=== PATIENT | male | born 1935 | race Caucasian/White ===

== ENCOUNTER 2024-10-16 08:29 | Day surgery (SDC) | payer MEDICARE, OTHER, SELFPAY ==
[2024-10-16] VITALS (17 sets, daily range): BP systolic 130–160; BP diastolic 56–99; BMI 25.9
--- NOTE | 2024-10-16 12:50 | HP.FOC2 ---
Focused History & Physical
Chief Complaint
HPI:
Chief Complaint: Left spigelian hernia
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 He has been experiencing intermittent symptoms with
increasing frequency including discomfort and occasional pain with difficulty reducing the hernia. He will have to lie down to relax his abdomen which enables the hernia to reduce. It tends to be exacerbated when he was straining during a bowel
movement if he is not providing adequate support in the area.
CT abdomen/pelvis imaging from 2021 identified a left-sided spigelian hernia predominantly fat-containing with the colon slightly entering the region of the fascial defect. Hernia defect measuring approximately 3 cm x 2 cm.
Relevant Past Medical History: Other (Anxiety/depression, hypercholesterolemia, urinary frequency, Parkinson's, PVCs)
Relevant Social History: Negative
Relevant Family History: Negative
Relevant Past Surgical History: Positive for (Bilateral hip replacement, bilateral knee replacement, cholecystectomy)
Review of Systems
Review of Pertinent Systems: All Systems Negative
Medication
See Medication form for detailed medications: Yes
Medication List (including Herbals & OTC):
escitalopram oxalate 5 mg tablet (Lexapro) 5 mg PO HS Depression 07/04/22
simvastatin 20 mg tablet (Zocor) 20 mg PO HS High cholesterol 07/04/22
tamsulosin 0.4 mg capsule (Flomax) 0.4 mg PO HS Urinary issue 07/04/22
famotidine 40 mg tablet 40 mg PO HS 10/10/24
finasteride 5 mg tablet 5 mg PO HS 10/10/24
mecobalamin (vitamin B12) 1,000 mcg chewable tablet 500 - 1,000 mcg PO DAILY 10/10/24
multivitamin 1 tab PO DAILY 10/10/24
polyethylene glycol 3350 17 gram oral powder packet (Miralax) 17 g PO DAILY 10/10/24
Medications Reviewed: Yes
Allergies and Reactions
Patient has Allergies: Yes
Noted Allergies and Reactions:
Allergy/AdvReac Type Severity Reaction Status Date / Time
piperacillin [From Zosyn] Allergy Mild SEVERE Verified 10/16/24 12:39
ERYTHEMA/SWELLING/RASH
tazobactam [From Zosyn] Allergy Mild SEVERE Verified 10/16/24 12:39
ERYTHEMA/SWELLING/RASH
morphine Allergy Unknown Verified 10/16/24 12:39
Pertinent Physical Exam
All Other Systems: Negative
Head/Neck: Normal
Lungs: Normal
Heart: Normal
Abdomen: Other (Reducible left lower quadrant spigelian hernia)
Extremities: Normal
Neurological: Normal
Diagnosis / Assessment
89-year-old male presenting for scheduled operative correction left-sided spigelian hernia.
Plan / Procedure
Open repair left spigelian hernia with mesh.
Anesthesia/Sedation to be done by Anesthesia Provider: Yes
--- NOTE | 2024-10-16 12:53 | W.SUR.PREOP ---
Pre-Operative Surgical Note
-
I have examined this patient prior to the performance of the scheduled procedure.
The patient's condition is unchanged from the time of the current History and
Physical and the patient is able to undergo the scheduled procedure.
[2024-10-16] MEDS: TYLENOL 1000 MG PO (13:10)
[2024-10-16] MEDS: NORMOSOL-R/PLASMALYTE-A 1000 IV (13:10)
--- NOTE | 2024-10-16 15:43 | W.IMMPOSTOP ---
Addendum entered and electronically signed by Ronald Wheeler MD 10/16/24 16:00:
#[id number]
Original Note:
Surgical Immed Post Op Note
-
Primary Surgeon: Ronald Wheeler MD
Assisting Surgeon: Gianna Pacheco PA-c
Pre-op Diagnosis: Left spigelian hernia
Post-op Diagnosis: Left spigelian hernia, 2 cm
Procedure Performed: Open repair left spigelian hernia with mesh (Bard soft 5 cm x 10 cm)
Anesthesia Type: LMA +1% lidocaine and 0.25% Marcaine with epi
Specimen / Cultures: None
Estimated Blood Loss: 6 mL
Complications: None immediate
Operative Findings: Left spigelian hernia. Sac ligated at neck with 2-0 Vicryl stitch. Defect approximately 2 cm closed with 2-0 Vicryl. Bard soft mesh 5 cm x 10 cm placed as a inlay between internal oblique/transversalis fascial defect and
external oblique. External oblique aponeurosis closed with 0 Vicryl.
The assistance of Gianna Pacheco PA-c was required due to the complexity of the procedure. During the procedure Gianna Pacheco PA-c assisted with retraction for exposure, and closure of the incision site.
[2024-10-16] MEDS: NSS 1000 IV (19:46)
[2024-10-16] MEDS: PROSCAR 5 MG PO (21:28)
[2024-10-16] MEDS: FLOMAX 0.4 MG PO (21:28)
[2024-10-16] MEDS: LEXAPRO 5 MG PO (21:28)
[2024-10-16] MEDS: LIPITOR 10 MG PO (21:28)
--- NOTE | 2024-10-16 23:56 | PTCARENOTE ---
Received patient from PACU. stable vitals. forgetful. No pain. Left lower abdominal site CDI. Bed alarm on place for safety. POC reviewed with patient and family.
[2024-10-17] MEDS: TYLENOL 650 MG PO (02:57)
[2024-10-17 03:00] VITALS: BP 151/77
[2024-10-17] MEDS: NSS IV (03:42)
--- NOTE | 2024-10-17 07:06 | W.PN.GS2 ---
Addendum entered and electronically signed by Ronald Wheeler MD 10/17/24 08:43:
Telephone follow-up updated patient's . Advised her that from my standpoint he would be medically/surgically cleared for discharge. She would like to further discuss with case management regarding what possible home resources may be available.
Dispo pending the above. She will be in to see her shortly.
Original Note:
Today's Communication / Plan
-
`
Assessment / Plan
-
Assessment: 89 y/o male POD#1 s/p open repair left spigelian hernia with mesh
AFVSS
overall doing well post op
Plan: tylenol for pain
ambulate as tolerated
home meds
from a surgical standpoint okay for dc home - possible home PT/VN
dispo planning
Subjective Data
-
Date of Service: October 17, 2024
pt seen and examined
nursing at bedside
voided overnight and trying to go again now
minimal post op pain only with movement
no nausea
Objective Data
-
Intake and Output
10/16/24 10/17/24 10/18/24
06:59 06:59 06:59
Intake Total 2335 / 2335
Output Total 725 / 725
Balance 1610 / 1610
Intake:
Oral fluids 960 / 960
IV fluids (Total) 1375 / 1375
normosol 175 / 175
Output:
Urine, Voided 725 / 725
Other:
How many times incontinent 1
SMALL amount urine
Vital Signs
Temp Pulse Resp BP Pulse Ox
97.5 F 66 18 151/77 93
10/17/24 03:00 10/17/24 03:00 10/17/24 03:00 10/17/24 03:00 10/17/24 03:00
Physical Exam
-
NAD AAO
ABD: soft, ND, mild TTP localized to LLQ with clean gauze dressing in place
[2024-10-17 07:19] VITALS: BP 147/82
[2024-10-17] MEDS: THERAGRAN 1 TABLET PO (08:52)
[2024-10-17] MEDS: MIRALAX 17 GRAMS PO (08:52)
--- NOTE | 2024-10-17 11:06 | CM ---
Reviewed the chart notes and spoke with the patient and his spouse at the bedside. The patient resides with his spouse in a two story home with one step to enter. First floor bedroom with full bath. The patient has had [facility] in the past, but
no SNF. Patient has a rolling walker and shower chair. Patient prior to hospitalization was doing outpatient therapy for Parkinsons at [facility]. Discussed VN agencies, patient selected [facility]N. Referral sent via [facility]. Patient's spouse to
provide transportation home. CM continues to be available to patient/family and is monitoring medical plan for needs at discharge.
Plan: Discharge to home today with VN services.
[2024-10-17 11:17] VITALS: BP 127/60
[2024-10-17 12:34] VITALS: BP 152/68; PULSE 72; O2SAT 99
[2024-10-17 13:59] VITALS: BP 160/83; PULSE 71; O2SAT 99
[2024-10-17 14:18] LABS: Urine Albumin 1+ (Neg - Trace); Urine Bilirubin Negative (Negative); Urine Character Slightly Cloudy (Clear); Urine Color Yellow; Urine Glucose Negative (Negative); Urine Ketone Negative (Negative); Urine Leukocyte 3+ (Negative); Urine Nitrite Negative (Negative); Urine Occult Blood 4+ (Negative); Urine Specific Gravity 1.015 (<1.030); Urine Urobilinogen Negative (Neg - 1+)
[2024-10-17 14:29] LABS: Urine Squamous Cell 0-2 /LPF (Few)
[2024-10-17 14:30] LABS: Urine Bacteria Few (Negative); Urine Red Blood Cell 16-20 /HPF (0-2); Urine White Cell 60-70 /HPF (0-5)
[2024-10-17 15:13] VITALS: BP 156/78
--- NOTE | 2024-10-17 17:28 | W.PN.URO.CBU ---
Today's Communication / Plan
-
home call for results of urine cx
Assessment / Plan
-
chronic intermittent hemnaturia no acute findings and resolved urine was nitrite neg cx sent aware to call for results also frequency urgency chronic with dementia and parkinsoins will follow up as outpatient
Diagnosis
-
Date of Service: October 17, 2024
-
Patient Diagnosis:hematuria from bph and oab of parkinsons H/o hematuria but dx bph no cancer no utis
Post Op Day:
Subjective
-
terminal stream painles hematuoirs possible dysuria 5 days ago
Objective
-
Vital Signs
Temp Pulse Resp BP Pulse Ox
97.7 F 73 17 156/78 98
10/17/24 15:13 10/17/24 15:13 10/17/24 15:13 10/17/24 15:13 10/17/24 15:13
Intake and Output
10/16/24 10/17/24 10/18/24
06:59 06:59 06:59
Intake Total 2335 / 2335 2099
Output Total 725 / 725 175 / 175
Balance 1610 / 1610 192 / 192
Intake:
Oral fluids 960 / 960 2099
IV fluids (Total) 1375 / 1375
normosol 175 / 175
Output:
Urine, Voided 725 / 725 175 / 175
Other:
Number of approximated MODERATE 2
amounts of urine
How many times incontinent 1
SMALL amount urine
Review of Systems
-
: Frequency, Urgency and Bleeding
Physical Exam
-
General - well developed, well nourished, no acute distress
Chest - clear bilaterally
Abdomen - soft, non-tender, positive bowel sounds, no CVAT, no incisional pain or distention
Genitalia - normal
Rectal - normal
Skin - warm & dry with no rash
Neuro - AOx3, no motor deficits
Extremities - no clubbing, no cyanosis, no edema
Incision - clean, dry
Dressing - clean, dry, intact
Care Review
Data Reviewed
Discussed with: Nursing and Other (general suirgery)
CT Scan: Image Pers Reviewed
--- NOTE | 2024-10-17 17:45 | W.DS.TRANS ---
DC Summary - Medical Massage Therapist
-
Discharge Instructions:
Sleep Apnea Risk Intermediate
Discharge Diagnosis/Procedures Left spigelian hernia. Open repair left
spigelian hernia with mesh.
Diet As tolerated,Regular
Additional Diets Smaller meals initially after surgery if
experiencing abdominal bloating/distention.
Activity No strenuous activity
Driving Restrictions No driving
Bathing Restrictions After dressing removed
Wound Care Remove surgical gauze and tape dressing 24-36hrs
hours postop. Leave Steri-Strips in place.
They typically peel off in 2 to 3 weeks.
Instructions:
Stand-Alone Forms:
Changes to Home Medications: No
Discharge Medications:
DC Medications w/original date entered in Tk20
escitalopram oxalate 5 mg tablet (Lexapro) 5 mg PO HS Depression 07/04/22
simvastatin 20 mg tablet (Zocor) 20 mg PO HS High cholesterol 07/04/22
tamsulosin 0.4 mg capsule (Flomax) 0.4 mg PO HS Urinary issue 07/04/22
famotidine 40 mg tablet 40 mg PO HS 10/10/24
finasteride 5 mg tablet 5 mg PO HS 10/10/24
mecobalamin (vitamin B12) 1,000 mcg chewable tablet 500 - 1,000 mcg PO DAILY 10/10/24
multivitamin 1 tab PO DAILY 10/10/24
polyethylene glycol 3350 17 gram oral powder packet (Miralax) 17 g PO DAILY 10/10/24
acetaminophen 500 mg tablet (Tylenol Extra Strength) 1,000 mg (2 x 500 mg) PO Q6HPRN PRN mild pain #1 tab 10/17/24
Home Medication Changes
Pending Results: No
== END 2024-10-17 18:50 | disposition home or self-care (01) ==
LOC: SDS 08:29
PROVIDERS: ATTENDING PHYSICIAN Surgery; CONSULT PHYSICIAN Specialist
DX: K43.9 Ventral hernia without obstruction or gangrene (principal)
CPT/HCPCS: 49591; 81003; 81015; 87086; 97163; 97166; 97535